=== PATIENT | female | born 1960 | race Two or more races ===

== ENCOUNTER 2024-02-16 11:40 | Inpatient (IN) | payer MEDICARE, OTHER ==
[~2024-02-16] VITALS: Ht 157.5 cm; Wt 75.7 kg
[2024-02-16 12:25] LABS: BASOPHILS % (AUTO) 0.1 % (0.0-2.0); EOSINOPHILS % (AUTO) 0.5 % (0.0-6.0); HEMATOCRIT 35 % (33-45); HEMOGLOBIN 11.3 g/dL (11.5-14.8); LYMPHOCYTES # (AUTO) 3.1 K/uL (0.8-4.8); LYMPHOCYTES % (AUTO) 43.8 % (20.0-44.0); MEAN CORPUSCULAR HEMOGLOBIN 30 PG (26.0-33.0); MEAN CORPUSCULAR HGB CONC 33 g/dl (31.0-36.0); MEAN CORPUSCULAR VOLUME 91 fL (82-100); MONOCYTES # (AUTO) 0.5 K/uL (0.1-1.30); MONOCYTES % (AUTO) 6.8 % (2.0-12.0); NEUTROPHILS # (AUTO) 3.4 K/uL (1.8-8.9); NEUTROPHILS % (AUTO) 48.8 % (43.0-81.0); PLATELET COUNT (AUTO) 196 K/uL (150-450); RED BLOOD CELL COUNT(AUTO) 3.81 MIL/uL (4.0-5.2); RED CELL DISTRIBUTION WIDTH 14.2 % (11.5-15.0)
[2024-02-16 12:42] LABS: CALCIUM, SERUM 8.5 mg/dL (8.5-10.1); CARBON DIOXIDE 27 mmol/L (21-32); CHLORIDE 108 mmol/L (98-107); CREATININE 0.6 mg/dL (0.6-1.3); GLUCOSE 89 mg/dL (74-106); SODIUM SERUM 139 mmol/L (136-145); UREA NITROGEN, BLOOD 16 mg/dL (7-18)
[2024-02-16 12:58] LABS: ALANINE AMINOTRANSFERASE 13 U/L (12-78); ALBUMIN 3.1 g/dL (3.4-5.0); ALCOHOL, BLOOD < 3 mg/dL (0-10); ALKALINE PHOSPHATASE 67 U/L (46-116); ASPARTATE AMINOTRANSFERASE 15 U/L (15-37); BILIRUBIN,DIRECT 0.1 mg/dL (0.0-0.2); BILIRUBIN,TOTAL 0.2 mg/dL (0.2-1.0); SALICYLATE 0.6 mg/dL (2.8-20.0); TOTAL PROTEIN, SERUM 6.5 g/dL (6.4-8.2)
[2024-02-16 12:59] LABS: ACETAMINOPHEN <10 ug/ml (10-30)
[2024-02-16] MEDS ORDERED: ZOLP5TAB8 PO (13:01)
[2024-02-16] MEDS ORDERED: NYST30CR2 TP (13:01)
[2024-02-16] MEDS ORDERED: TRAZ-182 PO (13:01)
[2024-02-16] MEDS ORDERED: BACL5TAB PO (13:01)
[2024-02-16] MEDS ORDERED: DIVA500T4 PO (13:01)
[2024-02-16] MEDS ORDERED: ACET325T53 PO (13:01)
[2024-02-16] MEDS ORDERED: HALO20TA7 PO (13:01)
[2024-02-16] MEDS ORDERED: CLON0.5T4 PO (13:01)
[2024-02-16] MEDS ORDERED: ATOR20TA PO (13:01)
[2024-02-16] MEDS ORDERED: BISA10SU11 RC (13:01)
[2024-02-16] MEDS ORDERED: BENZ0.5T43 PO (13:01)
[2024-02-16] MEDS ORDERED: MAGN400O6 PO (13:01)
[2024-02-16] MEDS ORDERED: ACET-73 PO (13:01)
[2024-02-16] MEDS ORDERED: DIVA250T PO (13:01)
[2024-02-16 14:10] LABS: APPEARANCE,URINE Clear (CLEAR); BILIRUBIN,URINE Negative (NEGATIVE); BLOOD, URINE Negative Ery/uL (NEGATIVE); COLOR,URINE YELLOW (YELLOW); KETONES,URINE Negative (NEGATIVE); LEUKOCYTE ESTERASE ,URINE Trace (NEGATIVE); NITRITE, URINE Negative (NEGATIVE); PROTEIN,URINE Negative (NEGATIVE); UGLUCOSE Negative (NEGATIVE); UROBILINOGEN,URINE 0.2 EU/dL (0.2)
[2024-02-16 14:17] LABS: ADD URINE CULTURE NO; BACTERIA,URINE Few /HPF (None Seen); RBC,URINE 0-2 /HPF (0-2); SQUAMOUS EPITHELIAL CELL,UR Few /HPF (None Seen); WBC,URINE 0-2 /HPF (0-3)
[2024-02-16 14:36] LABS: AMPHETAMINE, URINE NEGATIVE (NEGATIVE); BARBITURATE, URINE NEGATIVE (NEGATIVE); BENZODIAZEPINE, URINE NEGATIVE (NEGATIVE); CANNABINOID, URINE NEGATIVE (NEGATIVE); COCCAINE, URINE NEGATIVE (NEGATIVE); OPIATE, URINE NEGATIVE (NEGATIVE); PHENCYCLIDINE SCREEN,URINE NEGATIVE (NEGATIVE)
[2024-02-16 15:33] VITALS: BP 137/104; TEMP 97.9; O2SAT 94
[2024-02-16 16:00] VITALS: BP 137/104; TEMP 97.9; O2SAT 99
[2024-02-16] MEDS ORDERED: MAG HYDROX/AL HYDROX/SIMETH 30 ML UDC PO PRN (16:00)
[2024-02-16] MEDS ORDERED: MAGNESIUM HYDROXIDE 30 ML UDC PO PRN (16:00)
[2024-02-16] MEDS ORDERED: QUETIAPINE FUMARATE 25 MG TABLET PO PRN (16:00)
[2024-02-16] MEDS: BLOOD SUGAR DIAGNOSTIC 1 EACH STRIP IN ONE (16:14)
[2024-02-16] MEDS ORDERED: ACETAMINOPHEN 325 MG TABLET PO PRN (19:00)
[2024-02-16] MEDS ORDERED: BISACODYL SUPP (10 MG) 10 MG/SUPP.RECT SUPP.RECT RC PRN (19:00)
[2024-02-16 20:00] VITALS: BP 132/90; TEMP 98; O2SAT 95
[2024-02-16] MEDS: clonazePAM 0.5 MG TABLET PO SCH (20:26)
[2024-02-16] MEDS: DIVALPROEX SODIUM 250 MG TABLET.DR PO SCH (20:27)
[2024-02-16] MEDS: HALOPERIDOL 5 MG TABLET PO SCH (22:02)
[2024-02-17 07:42] LABS: BILIRUBIN,TOTAL 0.3 mg/dL (0.2-1.0); CALCIUM, SERUM 8.8 mg/dL (8.5-10.1); CREATININE 0.5 mg/dL (0.6-1.3); POTASSIUM 3.8 mmol/L (3.5-5.1); TOTAL PROTEIN, SERUM 6.2 g/dL (6.4-8.2)
[2024-02-17 08:00] VITALS: BP 100/50; TEMP 98; O2SAT 94
[2024-02-17] MEDS: NYSTATIN CREAM 15 GM TUBE TP SCH (09:00)
[2024-02-17] MEDS: BACLOFEN (10 MG) 10 MG TABLET PO SCH (09:03)
[2024-02-17 09:04] LABS: CREATININE 0.6 mg/dL (0.6-1.3)
[2024-02-17] MEDS: BENZTROPINE MESYLATE (1 MG) 1 MG TABLET PO SCH (09:04)
[2024-02-17] MEDS: ACETAMINOPHEN 325 MG TABLET PO PRN (14:41)
[2024-02-17 16:00] VITALS: BP 96/51; TEMP 98.1; O2SAT 98
[2024-02-17] MEDS: HALOPERIDOL DECANOATE IM 100 MG/ML AMPUL IM ONE (17:09)
[2024-02-17 20:00] VITALS: BP 115/62; TEMP 98.6; O2SAT 97
[2024-02-17 21:53] VITALS: BP 115/62; TEMP 98.2; O2SAT 97
[2024-02-17 21:53] LABS: CHOLESTEROL 5 mg/dL (<200); HDL CHOLESTEROL 56 mg/dL (40-60); LDL 40 mg/dL (0-99); TRIGLYCERIDES 56 mg/dL (30-150)
[2024-02-18] MEDS: ZOLPIDEM TARTRATE 5 MG TABLET PO PRN (21:31)
[2024-02-19] MEDS: clonazePAM 0.5 MG TABLET PO ONE (09:46)
[2024-02-19] MEDS: LORAZEPAM INJ 2 MG/ML VIAL IM ONE (16:17)
[2024-02-19] MEDS: HALOPERIDOL LACTATE INJ 5 MG/ML VIAL IM ONE (16:17)
[2024-02-20 08:00] VITALS: BP 95/45; TEMP 98.1; O2SAT 98
[2024-02-20] MEDS: clonazePAM 0.5 MG TABLET PO SCH (08:55)
[2024-02-20] MEDS: HALOPERIDOL 5 MG TABLET PO SCH (20:19)
[2024-02-20 21:56] VITALS: BP 105/55; TEMP 98; O2SAT 99
[2024-02-21] MEDS: LORAZEPAM INJ 2 MG/ML VIAL IM ONE (05:41)
[2024-02-21] MEDS: HALOPERIDOL LACTATE INJ 5 MG/ML VIAL IM ONE (05:41)
[2024-02-21] MEDS: diphenhydrAMINE HCL 50 MG/ML VIAL IM ONE (11:30)
[2024-02-21] MEDS ORDERED: diphenhydrAMINE HCL 50 MG/ML VIAL IM ONE (11:30)
[2024-02-21] MEDS ORDERED: OLANZAPINE 10 MG VIAL IM ONE (11:30)
[2024-02-21] MEDS: OLANZAPINE 10 MG VIAL IM ONE (11:30)
[2024-02-21] MEDS: HALOPERIDOL 5 MG TABLET PO SCH (13:24)
[2024-02-22 08:00] VITALS: BP 120/82; TEMP 98; O2SAT 100
[2024-02-22] MEDS: OLANZAPINE 10 MG VIAL IM ONE (09:31)
[2024-02-22] MEDS ORDERED: OLANZAPINE 10 MG VIAL IM PRN (11:00)
[2024-02-22] MEDS: DIVALPROEX SODIUM 250 MG TABLET.DR PO SCH (13:00)
[2024-02-22 16:00] VITALS: BP 140/91; TEMP 98.3; O2SAT 100
[2024-02-22 20:00] VITALS: BP 142/84; TEMP 97.6; O2SAT 98
[2024-02-23] MEDS: OLANZAPINE 5 MG TABLET PO PRN (00:49)
[2024-02-23] MEDS: OLANZAPINE 2.5 MG TABLET PO SCH (14:26)
[2024-02-24 08:00] VITALS: BP 101/51; TEMP 97.9; O2SAT 95
[2024-02-24] MEDS: OLANZAPINE 2.5 MG TABLET PO SCH (13:02)
[2024-02-26] MEDS: ZIPRASIDONE MESYLATE 20 MG/VIAL VIAL IM ONE (12:19)
[2024-02-26] MEDS: clonazePAM 0.5 MG TABLET PO SCH (14:29)
[2024-02-27 20:43] VITALS: BP 134/64; TEMP 97.7; O2SAT 97
[2024-02-28] MEDS: PROPRANOLOL HCL 10 MG TABLET PO SCH (20:06)
[2024-02-28 20:28] VITALS: BP 103/67; TEMP 98.2; O2SAT 100
[2024-02-29 08:18] LABS: ALBUMIN 2.8 g/dL (3.4-5.0); BILIRUBIN,TOTAL 0.3 mg/dL (0.2-1.0); CALCIUM, SERUM 9.2 mg/dL (8.5-10.1); CREATININE 0.8 mg/dL (0.6-1.3); POTASSIUM 3.9 mmol/L (3.5-5.1); TOTAL PROTEIN, SERUM 6.9 g/dL (6.4-8.2)
[2024-02-29 20:00] VITALS: BP 119/81; TEMP 98.4; O2SAT 95
[2024-03-01 08:00] VITALS: BP 110/78; TEMP 98.4; O2SAT 96
[2024-03-01 09:00] VITALS: BP 110/78
[2024-03-01] MEDS: clonazePAM 0.5 MG TABLET PO SCH (09:00)
[2024-03-18] MEDS ORDERED: HALOPERIDOL DECANOATE IM 100 MG/ML AMPUL IM ONE (15:30)
== END 2024-03-01 13:25 | DRG 885 ==
LOC: ER 11:49 → GPS 15:17
PROVIDERS: ADMIT Psychiatry & Neurology Psychiatry; ATTEND Nurse Practitioner Acute Care
DX: F20.0 Paranoid schizophrenia (principal); F41.9 Anxiety disorder, unspecified; F32.A Depression, unspecified; F29 Unspecified psychosis not due to a substance or known physiological condition; G31.84 Mild cognitive impairment of uncertain or unknown etiology; I10 Essential (primary) hypertension; Z79.899 Other long term (current) drug therapy; Z88.0 Allergy status to penicillin; Z73.6 Limitation of activities due to disability; R53.1 Weakness; R27.8 Other lack of coordination; Z91.81 History of falling; E86.0 Dehydration; R79.89 Other specified abnormal findings of blood chemistry; Z91.148 Patient's other noncompliance with medication regimen for other reason
CPT/HCPCS: 36415; 70450-TC; 80048-TC; 80053-TC; 80061-TC; 80076-TC; 80164-TC; 81001; 82565-TC; 85025-TC; 97112-TC; 97116-TC; 97530-TC; G0480; J1200; J1630; J1631; J2060; J3486; J3490

== ENCOUNTER 2024-06-09 14:51 | Emergency (ER) | payer MEDICARE, OTHER ==
[~2024-06-09] VITALS: Ht 152.4 cm; Wt 68.9 kg
[~2024-06-09 14:51] MED LIST: ACET-73 PO; ACET325T53 PO; ATOR20TA PO; BACL5TAB PO; BENZ0.5T43 PO; BISA10SU11 RC; CLON0.5T4 PO; DIVA250T PO; DIVA500T4 PO; HALO20TA7 PO; MAGN400O6 PO; NYST30CR2 TP; TRAZ-182 PO; ZOLP5TAB8 PO
[2024-06-09 15:37] LABS: BASOPHILS % (AUTO) 0.3 % (0.0-2.0); EOSINOPHILS % (AUTO) 0.4 % (0.0-6.0); HEMATOCRIT 38 % (33-45); HEMOGLOBIN 12.6 g/dL (11.5-14.8); LYMPHOCYTES # (AUTO) 3.6 K/uL (0.8-4.8); LYMPHOCYTES % (AUTO) 50.4 % (20.0-44.0); MEAN CORPUSCULAR HEMOGLOBIN 30 PG (26.0-33.0); MEAN CORPUSCULAR HGB CONC 34 g/dl (31.0-36.0); MEAN CORPUSCULAR VOLUME 90 fL (82-100); MONOCYTES # (AUTO) 0.6 K/uL (0.1-1.30); MONOCYTES % (AUTO) 7.8 % (2.0-12.0); NEUTROPHILS # (AUTO) 2.9 K/uL (1.8-8.9); NEUTROPHILS % (AUTO) 41.1 % (43.0-81.0); PLATELET COUNT (AUTO) 219 K/uL (150-450); RED BLOOD CELL COUNT(AUTO) 4.17 MIL/uL (4.0-5.2); RED CELL DISTRIBUTION WIDTH 14.6 % (11.5-15.0); WHITE BLOOD COUNT (AUTO) 7.1 K/uL (4.3-11.0)
[2024-06-09 15:47] LABS: CALCIUM, SERUM 9.2 mg/dL (8.5-10.1); CARBON DIOXIDE 27 mmol/L (21-32); CHLORIDE 108 mmol/L (98-107); CREATININE 0.5 mg/dL (0.6-1.3); GLUCOSE 96 mg/dL (74-106); POTASSIUM 4.1 mmol/L (3.5-5.1); SODIUM SERUM 143 mmol/L (136-145); UREA NITROGEN, BLOOD 19 mg/dL (7-18)
[2024-06-09 15:52] LABS: ALANINE AMINOTRANSFERASE 7 U/L (12-78); ALBUMIN 2.7 g/dL (3.4-5.0); ALKALINE PHOSPHATASE 68 U/L (46-116); ASPARTATE AMINOTRANSFERASE 5 U/L (15-37); BILIRUBIN,DIRECT 0.1 mg/dL (0.0-0.2); BILIRUBIN,TOTAL 0.2 mg/dL (0.2-1.0)
[2024-06-09 15:57] LABS: ACETAMINOPHEN 0 ug/ml (10-30); ALCOHOL, BLOOD < 3 mg/dL (0-10); SALICYLATE 1.4 mg/dL (2.8-20.0)
[2024-06-09] MEDS ORDERED: HALOPERIDOL LACTATE INJ 5 MG/ML VIAL ONE (16:08)
[2024-06-09] MEDS: HALOPERIDOL LACTATE INJ 5 MG/ML VIAL IM ONE (16:17)
[2024-06-09 16:50] LABS: APPEARANCE,URINE CLEAR (CLEAR); BILIRUBIN,URINE NEGATIVE (NEGATIVE); BLOOD, URINE NEGATIVE Ery/uL (NEGATIVE); COLOR,URINE YELLOW (YELLOW); KETONES,URINE NEGATIVE (NEGATIVE); LEUKOCYTE ESTERASE ,URINE 2+ (NEGATIVE); NITRITE, URINE NEGATIVE (NEGATIVE); PROTEIN,URINE NEGATIVE (NEGATIVE); UGLUCOSE NEGATIVE (NEGATIVE); UROBILINOGEN,URINE 0.2 EU/dL (0.2)
[2024-06-09 17:09] LABS: AMPHETAMINE, URINE NEGATIVE (NEGATIVE); BARBITURATE, URINE NEGATIVE (NEGATIVE); BENZODIAZEPINE, URINE NEGATIVE (NEGATIVE); CANNABINOID, URINE NEGATIVE (NEGATIVE); COCCAINE, URINE NEGATIVE (NEGATIVE); OPIATE, URINE NEGATIVE (NEGATIVE); PHENCYCLIDINE SCREEN,URINE NEGATIVE (NEGATIVE)
[2024-06-09 17:19] LABS: ADD URINE CULTURE YES; BACTERIA,URINE 1+ /HPF (None Seen); RBC,URINE 0-2 /HPF (0-2); SQUAMOUS EPITHELIAL CELL,UR 0-2 /HPF (None Seen); WBC,URINE 21-50 /HPF (0-3)
[2024-06-09] MEDS ORDERED: LEVOFLOXACIN (250MG) 250 MG TABLET ONE (20:23)
[2024-06-09] MEDS: LEVOFLOXACIN (250MG) 250 MG TABLET PO SCH (20:31)
[2024-06-09 21:06] VITALS: BP 131/69; TEMP 98.2; O2SAT 98
== END 2024-06-09 21:06 | disposition short-term general hospital (02) ==
LOC: ER 15:05
DX: R45.6 Violent behavior (principal); N39.0 Urinary tract infection, site not specified; F29 Unspecified psychosis not due to a substance or known physiological condition; F41.9 Anxiety disorder, unspecified; F32.A Depression, unspecified; E78.5 Hyperlipidemia, unspecified; J44.9 Chronic obstructive pulmonary disease, unspecified; F25.9 Schizoaffective disorder, unspecified; I10 Essential (primary) hypertension; Z87.09 Personal history of other diseases of the respiratory system; Z88.0 Allergy status to penicillin; Z20.822 Contact with and (suspected) exposure to COVID-19
CPT/HCPCS: 99285; 96372; 85025; 80048; 87086; 80076; 81001; 36415; 87081; 87426; 80143; 80320; 80307; J1630; G0480